=== PATIENT | female | born 1970 | race Two or more races ===

== ENCOUNTER 2018-03-15 22:20 | Emergency (ER) | payer MEDICAID ==
[~2018-03-15] VITALS: Ht 157.5 cm; Wt 68.0 kg
[2018-03-15] MEDS ORDERED: PRED10TA PO (22:36)
[2018-03-15] MEDS ORDERED: ALPR1TAB7 PO (22:36)
[2018-03-15] MEDS ORDERED: PRED-170 (22:36)
[2018-03-15] MEDS ORDERED: AMLO10TA4 PO (22:36)
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
--- NOTE | 2018-03-15 22:49 | NUR ---
DR SHY TRACEY MD AT BEDSIDE FOR MSE.
--- NOTE | 2018-03-15 22:57 | NUR ---
LAB AT PT BEDSIDE FOR BLOOD DRAW.
[2018-03-15] MEDS ORDERED: TDAP DIPH,PERTUSS,TET VAC/PF 0.5 ML DISP.SYRIN IM ONE ×2 (23:00→23:14)
[2018-03-15 23:17] LABS: BASOPHILS # (AUTO) 0.1 K/uL (0.0-8.0); BASOPHILS % (AUTO) 0.6 % (0.0-2.0); EOSINOPHILS # (AUTO) 0.1 K/uL (0.0-0.7); EOSINOPHILS % (AUTO) 0.8 % (0.0-7.0); HEMATOCRIT 36.5 % (31.2-41.9); HEMOGLOBIN 12.8 g/dL (10.9-14.3); LYMPHOCYTES % (AUTO) 30.5 % (20.5-51.5); MEAN CORPUSCULAR HEMOGLOBIN 31.1 uug (24.7-32.8); MEAN CORPUSCULAR HGB CONC 35 g/dL (32.3-35.6); MEAN CORPUSCULAR VOLUME 89.1 fL (75.5-95.3); MONOCYTES # (AUTO) 0.4 K/uL (2.0-10.0); MONOCYTES % (AUTO) 3.7 % (0.0-11.0); NEUTROPHILS # (AUTO) 6.2 K/uL (1.8-8.9); NEUTROPHILS % (AUTO) 64.4 % (38.5-71.5); PLATELET COUNT (AUTO) 243 K/uL (179-408); WHITE BLOOD COUNT (AUTO) 9.7 K/uL (3.8-11.8)
--- NOTE | 2018-03-15 23:18 | NUR ---
URINE SENT TO LAB.
[2018-03-15 23:22] LABS: ALANINE AMINOTRANSFERASE 24 U/L (14-59); ALKALINE PHOSPHATASE 112 U/L (50-136); ASPARTATE AMINOTRANSFERASE 15 U/L (15-37); BILIRUBIN,DIRECT 0.1 mg/dL (0.0-0.2); BILIRUBIN,TOTAL 0.2 mg/dL (0.2-1.0); CARBON DIOXIDE 30 mmol/L (21-32); CHLORIDE 104 mmol/L (98-107); CREATININE 0.9 mg/dL (0.6-1.3); GLUCOSE 110 mg/dL (74-106); POTASSIUM 3.7 mmol/L (3.5-5.1); TOTAL PROTEIN, SERUM 6.5 g/dL (6.4-8.2); UREA NITROGEN, BLOOD 12 mg/dL (7-18)
[2018-03-15 23:37] LABS: ETHANOL < 3 MG/DL (0-0)
[2018-03-15 23:38] LABS: ACETAMINOPHEN < 2.0 ug/mL (10-30)
[2018-03-15 23:50] LABS: *BILIRUBIN,URIN NEGATIVE (NEGATIVE); *BLOOD, URINE Trace-intact (NEGATIVE); *CLARITY,URINE CLEAR (CLEAR); *COLOR,URINE YELLOW (YELLOW); *KETONES,URINE NEGATIVE (NEGATIVE); *PROTEIN,URINE NEGATIVE (NEGATIVE); *UROBILINOGEN,URINE 0.2 E.U./dl (NORMAL); LEUKOCYTE ESTERASE ,URINE NEGATIVE (NEGATIVE); NITRITE, URINE NEGATIVE (NEGATIVE); UGLUCOSE NEGATIVE (NEGATIVE)
[2018-03-15 23:52] LABS: *AMPHETAMINE, URINE NEGATIVE (NEGATIVE); *BARBITURATE, URINE NEGATIVE (NEGATIVE); *CANNABINOID, URINE NEGATIVE (NEGATIVE); *COCCAINE, URINE NEGATIVE (NEGATIVE); *OPIATE, URINE POSITIVE (NEGATIVE); *PHENCYCLIDINE SCREEN,URINE NEGATIVE (NEGATIVE)
[2018-03-15 23:56] LABS: BACTERIA,URINE FEW /HPF (NONE SEEN); CALCIUM OXALATE CRYSTALS,UR FEW /HPF (NONE SEEN); SQUAMOUS EPITHELIAL CELL,UR MODERATE /HPF (NONE SEEN); WBC,URINE 0-3 /HPF (0-3)
--- NOTE | 2018-03-16 00:13 | NUR ---
JONAH REDDY CALLED FOR CRISIS EVAL.
--- NOTE | 2018-03-16 00:57 | NUR ---
JONAH OCHOAW AT BEDSIDE FOR EVAL.
--- NOTE | 2018-03-16 01:19 | NUR ---
Patient discharged to home in stable conditon. Written and verbal after care instructions given. Patient verbalizes understanding of instructions. Pt ambulated from ER w/ steady gait. Pt took all personal belongings. No distress noted.
[2018-03-16 01:23] VITALS: BP 142/86
== END 2018-03-16 01:25 | disposition home or self-care (01) ==
LOC: ER 22:26
DX: S51.811A Laceration without foreign body of right forearm, initial encounter (principal); S50.11XA Contusion of right forearm, initial encounter; F22 Delusional disorders; I10 Essential (primary) hypertension; F17.200 Nicotine dependence, unspecified, uncomplicated; Z79.899 Other long term (current) drug therapy; X58.XXXA Exposure to other specified factors, initial encounter; Y93.89 Activity, other specified; Y92.89 Other specified places as the place of occurrence of the external cause; Y99.8 Other external cause status
CPT/HCPCS: 36415; 80048; 80076; 80307; 81001; 85025; 90471; 90715; 99284; 99406; A4663; G0480 ×2; G0481